=== PATIENT | female | born 1980 | race Caucasian/White ===

== ENCOUNTER → 2020-11-03 | Outpatient (CLI) | payer OTHER ==
[~2020-11-03] MED LIST: CITRANATAL B-C1 EAC1; COLACE 100 MG100 MG PO; IBUPROFEN200 M2 PO; IRON325 PO; NORCO 5-325 TA1 EACH PO; ROBITUSSIN DM118 ML PO
== END ==
LOC: CAT 16:21
PROVIDERS: ATTEND Neuromusculoskeletal Medicine & OMM
DX: Z13.6 Encounter for screening for cardiovascular disorders (principal); I25.10 Atherosclerotic heart disease of native coronary artery without angina pectoris; E78.00 Pure hypercholesterolemia, unspecified